=== PATIENT | female | born 1985 | race Caucasian/White ===

== ENCOUNTER 2017-10-26 11:06 | Emergency (ER) | payer OTHER ==
[~2017-10-26] VITALS: Ht 172.7 cm; Wt 68.0 kg
[~2017-10-26 11:06] MED LIST: ACYCLOVIR 400400 MG; ALPRAZOLAM PO; BACTRIM DS TAB1 EACH; BACTRIM DS TAB1 EACH PO; CARISOPRODOL 3350 MG PO; CIPRO500 M1 PO; CIPROFLOXACIN500 M1 PO; CYCLOBENZAPRINE PO; FLEXERIL; FLEXERIL PO; HYDROCODONE-AP1 EAC6 PO; IBUPROFEN 800800 M1 PO; KEFLEX500 MG PO; NAPROSYN375 MG PO; NAPROSYN500 MG PO; PERCOCET 5-3251 EACH PO; PROAIR HFA8.5 GM INH; PROAIR RESPICL90 MCG INH; PROMETHAZINE D480 ML PO; PROMS25 WY RECTAL; ROBAXIN 750 MG750 M1 PO; VISTARIL 25 MG25 M1 PO; XANAX 0.5 MG0.5 MG PO; ZOFRAN ODT4 MG PO; ZOFRAN4 MG PO
[2017-10-26 11:39] LABS: ABSOLUTE EOSINOPHILS 0.1 thou/uL (0.0-0.7); ABSOLUTE MONOCYTES 0.9 thou/uL (0.0-1.2); ABSOLUTE NEUTROPHILS 5.9 thou/uL (1.6-8.1); BASOPHILS 0.4 %; EOSINOPHILS 0.7 %; HEMATOCRIT 40.7 % (37.0-47.0); HEMOGLOBIN 13.9 gm/dL (12.0-15.0); LYMPHOCYTES 13.1 %; MCH 31.7 pg (26.0-34.0); MCHC 34.2 g/dL (28.0-37.0); MCV 92.9 fL (80.0-100.0); MONOCYTES 11.7 %; MPV 10.8 fl. (7.2-11.1); NUCLEATED RBCS 0 /100WBC; PLATELET COUNT* 190 thou/uL (150-400); POLYS 74.1 %; RBC 4.38 mil/uL (4.20-5.00); RDW-CV 12.3 % (10.5-14.5)
[2017-10-26 11:47] LABS: CALCIUM 9.1 mg/dL (8.5-10.1); CREATININE 0.8 mg/dL (0.6-1.3); POTASSIUM 3.5 mmol/L (3.5-5.1)
[2017-10-26 11:51] LABS: ALBUMIN 3.7 g/dL (3.4-5.0); TOTAL BILIRUBIN 0.4 mg/dL (<0.1-1.0); TOTAL PROTEIN 6.7 g/dL (6.4-8.2)
[2017-10-26] MEDS ORDERED: PROMETHAZINE V473 ML PO (12:09)
[2017-10-26] MEDS ORDERED: ZPAK PO (12:09)
[2017-10-26] MEDS ORDERED: TESSALON PERLE100 MG PO (12:09)
[2017-10-26] MEDS ORDERED: PREDNISONE 20 M20 MG PO (12:09)
[2017-10-26 12:15] VITALS: BP 112/73
--- NOTE | 2017-10-27 14:33 | EKG ---
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[place] : 1985 Requested By: Alva Casarez Order Number: [id number] MD: Tom Singh Measurements Intervals [place] Rate: 100 P: 85 TN: 115 QRS: 83 QRSD: 76 T: -39 QT: 341 QTc: 440 Interpretive Statements Sinus tachycardia Right atrial enlargement Borderline repolarization abnormality Compared to ECG 11/28/2011 21:37:14 Sinus rhythm no longer present Sinus arrhythmia no longer present Electronically Signed On 10-27-2017 14:33:30 CDT by Tom Singh [email or web address] <ELECTRONICALLY SIGNED> By: Tom Singh MD, [facility] 10/27/17 1433 1113 [facility]3 Tom Singh MD, [facility] /EPI
== END 2017-10-26 12:18 | disposition home or self-care (01) ==
LOC: M.ERS 11:06
PROVIDERS: Physician Assistant
DX: J18.9 Pneumonia, unspecified organism (principal); J45.909 Unspecified asthma, uncomplicated; F17.210 Nicotine dependence, cigarettes, uncomplicated; Z91.040 Latex allergy status; Z88.5 Allergy status to narcotic agent

== ENCOUNTER 2017-11-06 13:13 | Emergency (ER) | payer OTHER ==
[~2017-11-06] VITALS: Ht 172.7 cm; Wt 74.8 kg
[~2017-11-06 13:13] MED LIST changes: +PREDNISONE 20 M20 MG PO; +PROMETHAZINE V473 ML PO; +TESSALON PERLE100 MG PO; +ZPAK PO
[2017-11-06] MEDS ORDERED: ALBUTEROL2.5 MG/31 INH (13:23)
[2017-11-06] MEDS ORDERED: ACCUNEB SO1.25 MG/1 INH (13:24)
[2017-11-06] MEDS ORDERED: PREDNISONE 20 M20 M1 PO (14:27)
[2017-11-06] MEDS ORDERED: PROMETHAZINE-D120 M1 PO (14:28)
[2017-11-06 14:36] VITALS: BP 85/56
== END 2017-11-06 14:37 | disposition home or self-care (01) ==
LOC: M.ERS 13:13
DX: R09.1 Pleurisy (principal); J45.909 Unspecified asthma, uncomplicated; F17.210 Nicotine dependence, cigarettes, uncomplicated; Z90.711 Acquired absence of uterus with remaining cervical stump; Z91.040 Latex allergy status; Z88.5 Allergy status to narcotic agent

== ENCOUNTER 2017-11-09 23:42 | Emergency (ER) | payer OTHER ==
[~2017-11-09] VITALS: Ht 172.7 cm; Wt 72.6 kg
[~2017-11-09 23:42] MED LIST changes: +ACCUNEB SO1.25 MG/1 INH; +ALBUTEROL2.5 MG/31 INH; +PREDNISONE 20 M20 M1 PO; +PROMETHAZINE-D120 M1 PO
[2017-11-10 00:14] LABS: ABSOLUTE LYMPHOCYTES 1.3 thou/uL (0.8-5.3); ABSOLUTE MONOCYTES 0.4 thou/uL (0.0-1.2); ABSOLUTE NEUTROPHILS 7.9 thou/uL (1.6-8.1); BASOPHILS 0.3 %; LYMPHOCYTES 13.1 %; MCH 31.9 pg (26.0-34.0); MCHC 34.2 g/dL (28.0-37.0); MCV 93.2 fL (80.0-100.0); MONOCYTES 4.3 %; MPV 10.4 fl. (7.2-11.1); NUCLEATED RBCS 0 /100WBC; PLATELET COUNT* 212 thou/uL (150-400); POLYS 82.3 %; RBC 4.08 mil/uL (4.20-5.00); RDW-CV 12.2 % (10.5-14.5); WBC 9.6 thou/uL (4.0-11.0)
[2017-11-10 00:33] LABS: ANION GAP 8 mmol/L (7-16); BUN 10 mg/dL (7-18); CALCIUM 9.2 mg/dL (8.5-10.1); CHLORIDE 104 mmol/L (98-107); CO2 26 mmol/L (21-32); CREATININE 0.8 mg/dL (0.6-1.3); GLUCOSE 135 mg/dL (70-99); POTASSIUM 3.7 mmol/L (3.5-5.1); SODIUM 138 mmol/L (136-145)
[2017-11-10 00:39] LABS: ALBUMIN 3.9 g/dL (3.4-5.0); ALKALINE PHOSPHATASE 76 U/L (46-116); LIPASE 74 U/L (73-393); MAGNESIUM 1.9 mg/dL (1.8-2.4); SGOT 12 U/L (15-37); SGPT 22 U/L (30-65); TOTAL BILIRUBIN 0.3 mg/dL (<0.1-1.0); TOTAL PROTEIN 6.8 g/dL (6.4-8.2); TROPONIN-I LEVEL <0.06 ng/mL (<0.06)
[2017-11-10] MEDS ORDERED: PERCOCET PO (02:37)
[2017-11-10 03:11] VITALS: BP 97/64
--- NOTE | 2017-11-10 14:37 | EKG ---
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1985 Requested By: Alfredo Goodwin Order Number: [id number] MD: Jenaro Odell Measurements Intervals [place] Rate: 67 P: 60 WY: 108 QRS: 69 QRSD: 77 T: 49 QT: 454 QTc: 480 Interpretive Statements Sinus rhythm Short [place] interval Borderline prolonged QT interval Compared to ECG 10/26/2017 11:13:41 Short [place] interval now present Sinus tachycardia no longer present Atrial abnormality no longer present Electronically Signed On 11-10-2017 14:37:39 CDT by Jenaro Odell [email or web address] <ELECTRONICALLY SIGNED> By: Chidi Odell MD, [facility] 11/10/17 1437 5 Chidi Odell MD, [facility] /EPI
--- NOTE | 2017-11-10 14:37 | EKG ---
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 : 1985 Requested By: Alfredo Goodwin Order Number: [id number] MD: Jenaro Odell Measurements Intervals [place] Rate: 83 P: 88 FL: 118 QRS: 76 QRSD: 91 T: 67 QT: 392 QTc: 461 Interpretive Statements Sinus rhythm Borderline short [place] interval Biatrial enlargement Baseline wander in lead(s) V1 Compared to ECG 10/26/2017 11:13:41 Sinus tachycardia no longer present Electronically Signed On 11-10-2017 14:37:35 CDT by Jenaro Odell [email or web address] <ELECTRONICALLY SIGNED> By: Chidi Odell MD, [facility] 11/10/17 1437 [id number] Chidi Odell MD, [facility] /EPI
== END 2017-11-10 03:12 | disposition home or self-care (01) ==
LOC: M.ERS 23:42
PROVIDERS: Emergency Medicine Emergency Medical Services
DX: J90 Pleural effusion, not elsewhere classified (principal); J45.909 Unspecified asthma, uncomplicated; F17.210 Nicotine dependence, cigarettes, uncomplicated; Z90.711 Acquired absence of uterus with remaining cervical stump; Z91.040 Latex allergy status; Z88.5 Allergy status to narcotic agent

== ENCOUNTER → 2017-12-12 | Outpatient (CLI) | payer OTHER ==
[~2017-12-12] MED LIST changes: +PERCOCET PO
== END ==
LOC: M.RAD 10:53
DX: J98.4 Other disorders of lung (principal); R09.89 Other specified symptoms and signs involving the circulatory and respiratory systems; J45.909 Unspecified asthma, uncomplicated

== ENCOUNTER 2018-07-12 08:40 | Emergency (ER) | payer OTHER ==
[~2018-07-12] VITALS: Ht 172.7 cm; Wt 72.6 kg
[2018-07-12] MEDS ORDERED: ADDERALL 10 MG10 MG PO (08:58)
[2018-07-12] MEDS ORDERED: XANAX 0.25 MG0.25 MG PO (08:58)
[2018-07-12] MEDS ORDERED: FLEXERIL PO (09:12)
[2018-07-12] MEDS ORDERED: ULTRAM 50MG TAB50 MG PO (09:12)
[2018-07-12 09:16] VITALS: BP 114/87
== END 2018-07-12 09:17 | disposition left against medical advice (07) ==
LOC: M.ERS 08:40
DX: M25.512 Pain in left shoulder (principal); F17.210 Nicotine dependence, cigarettes, uncomplicated; J45.909 Unspecified asthma, uncomplicated; Z91.040 Latex allergy status; Z88.8 Allergy status to other drugs, medicaments and biological substances; Z96.651 Presence of right artificial knee joint; Z90.711 Acquired absence of uterus with remaining cervical stump

== ENCOUNTER 2020-11-19 16:13 | Emergency (ER) | payer OTHER ==
[~2020-11-19] VITALS: Ht 172.7 cm; Wt 61.2 kg
[~2020-11-19 16:13] MED LIST changes: +ADDERALL 10 MG10 MG PO; +ULTRAM 50MG TAB50 MG PO; +XANAX 0.25 MG0.25 MG PO
[2020-11-19 16:43] LABS: URINE BILIRUBIN NEGATIVE (Negative); URINE BLOOD NEGATIVE (Negative); URINE CLARITY CLEAR; URINE COLOR YELLOW; URINE GLUCOSE-RANDOM NEGATIVE (Negative); URINE KETONES NEGATIVE (Negative); URINE LEUKOCYTES-REFLEX NEGATIVE (Negative); URINE NITRITE-REFLEX NEGATIVE (Negative); URINE PROTEIN NEGATIVE (Negative); URINE SPECIFIC GRAVITY >= 1.030 (1.005-1.030); URINE UROBILINOGEN 0.2 E.U./dl (0.2-1.0)
[2020-11-19 17:23] LABS: ABSOLUTE LYMPHOCYTES 2.4 thou/uL (0.8-5.3); ABSOLUTE MONOCYTES 0.6 thou/uL (0.0-1.2); ABSOLUTE NEUTROPHILS 6.2 thou/uL (1.6-8.1); BASOPHILS 0.2 %; EOSINOPHILS 0.3 %; HEMATOCRIT 38.1 % (37.0-47.0); HEMOGLOBIN 12.9 gm/dL (12.0-15.0); MCH 31.1 pg (26.0-34.0); MCHC 33.9 g/dL (28.0-37.0); MONOCYTES 6.3 %; MPV 9.1 fl. (7.2-11.1); NUCLEATED RBCS 0 /100WBC; PLATELET COUNT* 223 thou/uL (150-400); POLYS 67.2 %; RBC 4.15 mil/uL (4.20-5.00); RDW-CV 11.9 % (10.5-14.5); WBC 9.2 thou/uL (4.0-11.0)
[2020-11-19 17:32] LABS: CALCIUM 8.6 mg/dL (8.5-10.1); CREATININE 0.8 mg/dL (0.6-1.3); POTASSIUM 3.8 mmol/L (3.5-5.1)
[2020-11-19 17:37] LABS: ALBUMIN 3.8 g/dL (3.4-5.0); TOTAL BILIRUBIN 0.4 mg/dL (<0.1-1.0); TOTAL PROTEIN 6.6 g/dL (6.4-8.2)
[2020-11-19] MEDS ORDERED: PEPCID AC20 MG PO (20:11)
[2020-11-19] MEDS ORDERED: ZOFRAN ODT4 MG PO (20:11)
[2020-11-19] MEDS ORDERED: TRAMADOL 50 MG50 MG PO (20:11)
[2020-11-19 20:27] VITALS: BP 132/78
== END 2020-11-19 20:27 | disposition home or self-care (01) ==
LOC: M.ERS 16:13
PROVIDERS: Emergency Medicine Emergency Medical Services
DX: R10.31 Right lower quadrant pain (principal); R10.11 Right upper quadrant pain; J45.909 Unspecified asthma, uncomplicated; F17.210 Nicotine dependence, cigarettes, uncomplicated; Z91.040 Latex allergy status; Z88.5 Allergy status to narcotic agent

== ENCOUNTER 2021-01-04 12:19 | Emergency (ER) | payer OTHER ==
[~2021-01-04] VITALS: Ht 172.7 cm; Wt 65.8 kg
[~2021-01-04 12:19] MED LIST changes: +PEPCID AC20 MG PO; +TRAMADOL 50 MG50 MG PO
[2021-01-04] MEDS ORDERED: MELOXICAM15 MG PO (12:53)
[2021-01-04 13:00] VITALS: BP 125/72
== END 2021-01-04 13:01 | disposition home or self-care (01) ==
LOC: M.ERS 12:19
DX: H92.02 Otalgia, left ear (principal); M26.622 Arthralgia of left temporomandibular joint; J45.909 Unspecified asthma, uncomplicated; F17.210 Nicotine dependence, cigarettes, uncomplicated; Z91.040 Latex allergy status; Z88.5 Allergy status to narcotic agent; Z90.711 Acquired absence of uterus with remaining cervical stump